=== PATIENT | female | born 1970 | race African-American/Black ===

== ENCOUNTER → 2016-11-05 | Outpatient (CLI) | payer OTHER ==
[2016-11-05 16:57] LABS: ABSOLUTE EOSINOPHILS # (AUTO) 0.1 10^3/uL (0.0-0.6); ABSOLUTE LYMPHOCYTES (AUTO) 2.8 10^3/uL (0.5-4.7); ABSOLUTE MONOCYTES (AUTO) 0.6 10^3/uL (0.1-1.4); BASOPHILS % (AUTO) 0.6 % (0-2); EOSINOPHILS % (AUTO) 0.8 % (0-6); HEMATOCRIT 45.6 % (36.0-47.0); HEMOGLOBIN 15.1 g/dL (12.0-15.5); HGB HCT DIFFERENCE -0.3; LYMPHOCYTES % (AUTO) 37.3 % (13-45); MEAN CORPUSCULAR HEMOGLOBIN 28.1 pg (27.0-33.4); MEAN CORPUSCULAR VOLUME 85 fl (80-97); MONOCYTES % (AUTO) 7.5 % (3-13); RED BLOOD COUNT 5.36 10^6/uL (3.72-5.28); RED CELL DISTRIBUTION WIDTH 14.1 % (11.5-14.0); SEGMENTED NEUTROPHILS % (AUTO) 53.8 % (42-78); WHITE BLOOD COUNT 7.4 10^3/uL (4.0-10.5)
[2016-11-05 17:22] LABS: ALANINE AMINOTRANSFERASE 32 U/L (9-52); ALBUMIN 4.9 g/dL (3.5-5.0); ALKALINE PHOSPHATASE 110 U/L (38-126); ANION GAP 19 (5-19); ASPARTATE AMINO TRANSFERASE 22 U/L (14-36); BILIRUBIN,DIRECT 0.4 mg/dL (0.0-0.4); BILIRUBIN,TOTAL 0.8 mg/dL (0.2-1.3); BLOOD UREA NITROGEN 18 mg/dL (7-20); CARBON DIOXIDE 21 mmol/L (22-30); CHLORIDE 99 mmol/L (98-107); CREATININE RESULT 0.99 mg/dL (0.52-1.25); GLUCOSE 95 mg/dL (75-110); POTASSIUM 3.5 mmol/L (3.6-5.0)
== END ==
LOC: CCC 15:27
DX: I10 Essential (primary) hypertension (principal); F41.9 Anxiety disorder, unspecified
CPT/HCPCS: 36415; 80053; 83036; 84436; 85025

== ENCOUNTER 2016-11-06 07:47 | Emergency (ER) | payer SELFPAY ==
--- NOTE | 2016-11-06 09:52 | ER Document Report ---
ED Medical Screen (RME) - General Chief Complaint: Anxiety Stated Complaint: ANXIETY Time Seen by Provider: 11/06/16 09:28 TRAVEL OUTSIDE OF THE U.[place] IN LAST 30 DAYS: No - HPI Notes: 11/06/16 09:51 Patient recently started on amlodipine hydrochlorothiazide and Prozac states having palpitations and worsening of her anxiety. - Related Data Allergies/Adverse Reactions: No Known Allergies Allergy (Verified 11/06/16 07:57) Past Medical History - Social History Chew tobacco use (# tins/day): No Frequency of alcohol use: None Drug Abuse: None - Past Medical History Cardiac Medical History: Reports: Hx Hypertension Renal/ Medical History: Denies: Hx Peritoneal Dialysis Psychiatric Medical History: Reports: Hx Depression - & anxiety Surgical Hx: Negative - Immunizations Hx Diphtheria, Pertussis, Tetanus Vaccination: Yes Review of Systems - Review of Systems Constitutional: Other - Patient is anxiety Physical Exam - Vital signs Vitals: Temp Pulse Resp BP Pulse Ox 98.2 F 115 H 16 135/93 H 99 11/06/16 07:57 11/06/16 07:57 11/06/16 07:57 11/06/16 07:57 11/06/16 07:57 - Cardiovascular Rhythm: Regular Heart sounds: Normal auscultation Course - Vital Signs Vital signs: Temp Pulse Resp BP Pulse Ox 98.2 F 115 H 16 135/93 H 99 11/06/16 07:57 11/06/16 07:57 11/06/16 07:57 11/06/16 07:57 11/06/16 07:57 Doctor's Discharge - Discharge Instructions: Anxiety ([facility])
[2016-11-06 10:23] LABS: ABSOLUTE BASOPHILS # (AUTO) 0.1 10^3/uL (0.0-0.2); ABSOLUTE EOSINOPHILS # (AUTO) 0.1 10^3/uL (0.0-0.6); ABSOLUTE LYMPHOCYTES (AUTO) 1.8 10^3/uL (0.5-4.7); ABSOLUTE MONOCYTES (AUTO) 0.6 10^3/uL (0.1-1.4); ABSOLUTE NEUT (AUTO) 4.5 10^3/uL (1.7-8.2); HEMATOCRIT 45.8 % (36.0-47.0); HEMOGLOBIN 14.9 g/dL (12.0-15.5); HGB HCT DIFFERENCE -1.1; LYMPHOCYTES % (AUTO) 25.7 % (13-45); MEAN CORPUSCULAR HEMOGLOBIN 27.9 pg (27.0-33.4); MEAN CORPUSCULAR HGB CONC 32.6 g/dL (32.0-36.0); MEAN CORPUSCULAR VOLUME 86 fl (80-97); MONOCYTES % (AUTO) 8.1 % (3-13); RED BLOOD COUNT 5.34 10^6/uL (3.72-5.28); RED CELL DISTRIBUTION WIDTH 14.3 % (11.5-14.0); SEGMENTED NEUTROPHILS % (AUTO) 64.2 % (42-78)
[2016-11-06 10:42] LABS: ALANINE AMINOTRANSFERASE 30 U/L (9-52); ALBUMIN 4.7 g/dL (3.5-5.0); ALKALINE PHOSPHATASE 111 U/L (38-126); ANION GAP 15 (5-19); ASPARTATE AMINO TRANSFERASE 23 U/L (14-36); BILIRUBIN,DIRECT 0.4 mg/dL (0.0-0.4); BLOOD UREA NITROGEN 15 mg/dL (7-20); CALCIUM 10.2 mg/dL (8.4-10.2); CARBON DIOXIDE 25 mmol/L (22-30); CHLORIDE 97 mmol/L (98-107); CREATINE KINASE 179 U/L (30-135); CREATININE RESULT 0.77 mg/dL (0.52-1.25); GLUCOSE 110 mg/dL (75-110); POTASSIUM 3.3 mmol/L (3.6-5.0); SODIUM 137.3 mmol/L (137-145)
[2016-11-06] MEDS ORDERED: POTASSIUM CHLORIDE 10 MEQ TABLET.SA PO ONE (10:45)
[2016-11-06 10:51] LABS: URINE BARBITURATES SCREEN NEGATIVE; URINE METHADONE SCREEN NEGATIVE; URINE OPIATES LOW NEGATIVE; URINE PHENCYCLIDINE SCREEN NEGATIVE
--- NOTE | 2016-11-06 10:51 | ER Document Report ---
ED General - General Chief Complaint: Anxiety Stated Complaint: ANXIETY Time Seen by Provider: 11/06/16 09:28 Mode of Arrival: Ambulatory Information source: Patient, Parent TRAVEL OUTSIDE OF THE [place] IN LAST 30 DAYS: No - HPI Onset: Other - 2 DAYS Onset/Duration: Sudden, Intermittent Quality of pain: No pain Associated symptoms: Other - PALPITATIONS, ANXIETY Exacerbated by: Denies Relieved by: Denies Similar symptoms previously: No Recently seen / treated by doctor: Yes - 3 d AGO, BEGUN ON 3 NEW MEDS - Related Data Allergies/Adverse Reactions: No Known Allergies Allergy (Verified 11/06/16 07:57) Past Medical History - General Information source: Patient - Social History Smoking Status: Former Smoker Cigarette use (# per day): No Chew tobacco use (# tins/day): No Frequency of alcohol use: None Drug Abuse: None Lives with: Parents Family History: None Patient has suicidal ideation: No Patient has homicidal ideation: No - Past Medical History Cardiac Medical History: Reports: Hx Hypertension Pulmonary Medical History: Reports: None EENT Medical History: Reports: None Neurological Medical History: Reports: None Endocrine Medical History: Reports: None Renal/ Medical History: Reports: None. Denies: Hx Peritoneal Dialysis Malignancy Medical History: Reports: None GI Medical History: Reports: None Musculoskeltal Medical History: Reports None Psychiatric Medical History: Reports: Hx Depression - & anxiety Surgical Hx: Negative - Immunizations Hx Diphtheria, Pertussis, Tetanus Vaccination: Yes Review of Systems - Review of Systems Constitutional: No symptoms reported EENT: No symptoms reported Cardiovascular: See HPI Respiratory: No symptoms reported Gastrointestinal: No symptoms reported Genitourinary: No symptoms reported Musculoskeletal: No symptoms reported Skin: No symptoms reported Neurological/Psychological: No symptoms reported Physical Exam - Vital signs Vitals: Temp Pulse Resp BP Pulse Ox 98.2 F 115 H 16 135/93 H 99 11/06/16 07:57 11/06/16 07:57 11/06/16 07:57 11/06/16 07:57 11/06/16 07:57 Interpretation: Hypertensive, Tachycardic - General General appearance: Appears well, Alert In distress: None - HEENT Head: Normocephalic Eyes: Normal Conjunctiva: Normal Ears: Normal Nasal: Normal Mouth/Lips: Normal Mucous membranes: Normal Neck: Normal - Respiratory Respiratory status: No respiratory distress Breath sounds: Normal - Cardiovascular Rhythm: Regular, Tachycardia Heart sounds: Normal auscultation Murmur: No - Abdominal Inspection: Normal - Back Back: Normal - Extremities General upper extremity: Normal inspection General lower extremity: Normal inspection. No: Edema - Neurological Neuro grossly intact: Yes Cognition: Normal Orientation: AAOx4 - Psychological Associated symptoms: Normal affect, Normal mood - Skin Skin Temperature: Warm Skin Moisture: Dry Skin Color: Normal Skin Turgor: Elastic Course - Vital Signs Vital signs: Temp Pulse Resp BP Pulse Ox 98.2 F 115 H 16 135/93 H 99 11/06/16 07:57 11/06/16 07:57 11/06/16 07:57 11/06/16 07:57 11/06/16 07:57 - Laboratory Result Diagrams: 11/06/16 10:00 11/06/16 10:00 Laboratory results interpreted by me: 11/06/16 11/06/16 10:00 10:00 RBC 5.34 H RDW 14.3 H Potassium 3.3 L Chloride 97 L Creatine Kinase 179 H Total Protein 9.0 H - EKG Interpretation by Me EKG shows normal: Sinus rhythm, [place], Intervals, QRS Complexes. abnormal: ST-T Waves - FLAT & INVERTED T WAVES, WIDESPREAD Rate: Tachycardia P Waves: LAE Discharge - Discharge Clinical Impression: Palpitations, Hypokalemia Depression Qualifiers: Depression Type: unspecified Qualified Code(s): F32.9 - Major depressive disorder, single episode, unspecified Condition: Stable Instructions: Anxiety ([facility]), Palpitations (Irregular or Rapid Heartrate) ([facility]) , Hypokalemia ([facility]) Additional Instructions: STOP TAKING YOUR AMLODIPINE AND PAROXETINE FOR NOW. CONTINUE TAKING HCTZ (HYDROCHLOROTHIAZIDE). TAKE POTASSIUM TABLETS PRESCRIBED FOR THE NEXT 7 DAYS. FOLLOW UP WITH YOUR PRIMARY CARE PROVIDER TUESDAY OR TUESDAY FOR BLOOD PRESSURE AND POTASSIUM RE-CHECK. RETURN TO E.R. IF PROBLEMS. Prescriptions: Potassium Chloride 10 meq PO BID #14 tablet.er Referrals: [facility] [Primary Care Provider] - Follow up as needed
[2016-11-06 11:06] LABS: CREATINE KINASE MB 0.57 ng/mL (<4.55); TROPONIN I < 0.012 ng/mL
[2016-11-06 11:25] LABS: THYROID STIMULATING HORMONE 1.77 uIU/mL (0.47-4.68)
[2016-11-06 12:23] VITALS: BP 114/71
--- NOTE | 2016-11-06 17:39 | EKG REPORT ---
SEVERITY:- ABNORMAL ECG - SINUS TACHYCARDIA PROBABLE LEFT ATRIAL ABNORMALITY ABNORMAL T, CONSIDER ISCHEMIA, DIFFUSE LEADS : Confirmed by: Megan Gallo 06-Nov-2016 17:38:49
== END 2016-11-06 12:20 | disposition home or self-care (01) ==
LOC: ER 07:47
DX: F32.9 Major depressive disorder, single episode, unspecified (principal); E87.6 Hypokalemia; R00.2 Palpitations; F41.9 Anxiety disorder, unspecified; Z87.891 Personal history of nicotine dependence
CPT/HCPCS: 36415; 80053; 80307; 82550; 82553; 84439; 84443; 84484; 85025; 93005; 93010; 99285

== ENCOUNTER → 2016-11-19 | Outpatient (CLI) | payer OTHER ==
--- NOTE | 2016-11-19 12:58 | WOMENS IMAGING REPORT ---
EXAM DESCRIPTION: BILAT SCREENING MAMMO W/CAD COMPLETED DATE/TIME: 11/19/2016 12:44 pm REASON FOR STUDY: Z12.31, ROUTINE SCREENING MAMMO Z12.31 ENCNTR SCREEN MAMMOGRAM FOR MALIGNANT NEOP LASM OF RENATO COMPARISON: None available TECHNIQUE: Standard craniocaudal and mediolateral oblique views of each breast recorded using digita l acquisition. LIMITATIONS: None. FINDINGS: No masses, calcifications or architectural distortion. No areas of suspicion. Read with the assistance of CAD. .[facility] - R2 Cenova Version 1.3 .[facility] Imaging - R2 Cenova Version 1.3 .[facility] - R2 Cenova Version 2.4 .[facility] - R2 Cenova Version 2.4 .[facility] - R2 Sternman Version 9.2 IMPRESSION: NORMAL MAMMOGRAM. BIRADS 1. BREAST DENSITY: c. The breasts are heterogeneously dense, which may obscure small masses. BIRAD: 1 NEGATIVE RECOMMENDATION: ROUTINE SCREENING Please consider bilateral screening tomosynthesis in November 2017 given heterogeneously dense tissue COMMENT: The patient has been notified of the results by letter per SA requirements. Additional no tification policies are in place for contacting patient with suspicious or incomplete findings. Quality ID #[id number]: The [employer] recommends an annual screening mammogram for women aged 40 years or over. This facility utilizes a reminder system to ensure that all patients receive reminder letters, and/or direct phone calls for appointments. This includes reminders for routine scr eening mammograms, diagnostic mammograms, or other Breast Imaging Interventions when appropriate. Th is patient will be placed in the appropriate reminder system. The [employer] [employer] (ACR) has developed recommendations for screening MRI of the breast s in certain patient populations, to be used in conjunction with mammography. Breast MRI surveillanc e may be appropriate for women with more than 20% lifetime risk of developing breast cancer as deter mined by genetic testing, significant family history of the disease, or history of mantle radiation f or Hodgkins Disease. ACR Practice Guidelines 2008. TECHNICAL DOCUMENTATION: FINDING NUMBER: (1) ASSESSMENT: (1) JOB ID: [id number] [employer]- All Rights Reserved
== END ==
LOC: WI 12:27
DX: Z12.31 Encounter for screening mammogram for malignant neoplasm of breast (principal)
CPT/HCPCS: 77067; G0202

== ENCOUNTER → 2016-11-19 | Outpatient (CLI) | payer OTHER ==
[2016-11-19 13:08] LABS: CHOLESTEROL 172.34 mg/dL (0-200); Direct HDL 60 mg/dL (>40); TRIGLYCERIDES 101 mg/dL (<150)
[2016-11-19 13:20] LABS: DIRECT LDL 99 mg/dL (<100)
== END ==
LOC: CCC 11:52
DX: I10 Essential (primary) hypertension (principal); F41.9 Anxiety disorder, unspecified
CPT/HCPCS: 36415; 80061

== ENCOUNTER 2018-08-03 10:33 | Emergency (ER) | payer SELFPAY ==
--- NOTE | 2018-08-03 11:57 | ER Document Report ---
ED Medical Screen (RME) - General Chief Complaint: Numbness Stated Complaint: FOOT NUMBNESS Time Seen by Provider: 08/03/18 11:21 Primary [facility] Provider: [facility] [Primary Care Provider] - Follow up as needed Mode of Arrival: Ambulatory Information source: Patient TRAVEL OUTSIDE OF THE U.S. IN LAST 30 DAYS: No - HPI Notes: 08/03/18 11:53 Patient is a 48-year-old female history of hypertension and gestational diabetes and anxiety presents to the emergency department with report of a 2-day history of numbness in the left foot that she is noticed. She states she has some new diabetic socks that may have felt somewhat tight around her foot and ankle which may have accounted for this. She questions if she can massage the area and it might feel better. She denies any weakness, headache, chest pain, difficulty breathing. She reports that the numbness has been fairly consistent for the past 2 days. Family history diabetes, coronary artery disease in the age 60-70 range. Strokes in the age 80 range. Medications hydroxyzine and a blood pressure/fluid pill. Physical exam HEENT atraumatic normocephalic conjunctiva clear Neck supple nontender no carotid bruits. Cardiovascular regular rate and rhythm without appreciable murmur gallop or rubs. Rate was 98, although her triage pulse rate was 127 Lungs clear to auscultation Abdomen nontender Extremities good distal pulses and capillary refill all 4 extremities. No cyanosis, clubbing or edema. Skin no breakdown or other abnormality. Neuro exam normal except for subjective numbness left foot. No motor deficits or other abnormality appreciated. No cerebellar ataxia. Cranial nerves II through XII intact. Blood pressure somewhat elevated in triage pulse rate was 127, although that has normalized. Most likely related to the tight socks and increased time on the patient's feet, but must also rule out and evaluate for electrolyte imbalance and CVA and cardiac arrhythmia given the tachycardia noted. CT scan EKG and lab studies ordered on the patient. Please see partner's note for further evaluation and care. - Related Data Allergies/Adverse Reactions: No Known Allergies Allergy (Verified 11/06/16 07:57) Past Medical History - Social History Chew tobacco use (# tins/day): No Frequency of alcohol use: None Drug Abuse: None - Past Medical History Cardiac Medical History: Reports: Hx Hypertension Renal/ Medical History: Denies: Hx Peritoneal Dialysis Psychiatric Medical History: Reports: Hx Depression - & anxiety - Immunizations Hx Diphtheria, Pertussis, Tetanus Vaccination: Yes Physical Exam - Vital signs Vitals: Temp Pulse Resp BP Pulse Ox 98.4 F 127 H 20 156/103 H 99 08/03/18 10:43 08/03/18 10:43 08/03/18 10:43 08/03/18 10:43 08/03/18 10:43 Course - Vital Signs Vital signs: Temp Pulse Resp BP Pulse Ox 98.4 F 127 H 20 156/103 H 99 08/03/18 10:43 08/03/18 10:43 08/03/18 10:43 08/03/18 10:43 08/03/18 10:43 Doctor's Discharge - Discharge Referrals: [facility] [Primary Care Provider] - Follow up as needed
--- NOTE | 2018-08-03 12:35 | RADIOLOGY REPORT (SQ) ---
EXAM DESCRIPTION: CT HEAD WITHOUT COMPLETED DATE/TIME: 08/03/2018 12:29 pm REASON FOR STUDY: L foot numbness COMPARISON: None. TECHNIQUE: Axial images acquired through the brain without intravenous contrast. Images reviewed wi th bone, brain and subdural windows. Additional sagittal and coronal reconstructions were generated. Images stored on PACS. All CT scanners at this facility use dose modulation, iterative reconstruction, and/or weight based d osing when appropriate to reduce radiation dose to as low as reasonably achievable (ALARA). [facility]: Dose Right [facility]: CareDose [facility]: Dose Right [facility]: Teradose 4D [facility]: Smart Technologies RADIATION DOSE: CT Rad equipment meets quality standard of care and radiation dose reduction techniq ues were employed. CTDIvol: 53.2 mGy. DLP: 1097 mGy-cm. mGy. LIMITATIONS: None. FINDINGS: VENTRICLES: Normal size and contour. CEREBRUM: No masses. No hemorrhage. No midline shift. No evidence for acute infarction. Normal gra y/white matter differentiation. No areas of low density in the white matter. CEREBELLUM: No masses. No hemorrhage. No alteration of density. No evidence for acute infarction. EXTRAAXIAL SPACES: No fluid collections. No masses. ORBITS AND GLOBE: No intra- or extraconal masses. Normal contour of globe without masses. CALVARIUM: No fracture. PARANASAL SINUSES: No fluid or mucosal thickening. SOFT TISSUES: No mass or hematoma. OTHER: No other significant finding. IMPRESSION: NORMAL BRAIN CT WITHOUT CONTRAST. EVIDENCE OF ACUTE STROKE: NO. COMMENT: Quality ID # [id number]: Final reports with documentation of one or more dose reduction techniques (e.g., Automated exposure control, adjustment of the mA and/or kV according to patient size, use of iterative reconstruction technique) TECHNICAL DOCUMENTATION: JOB ID: [id number] [employer]- All Rights Reserved Reading location - IP/workstation name: [email or web address]
[2018-08-03 12:46] LABS: ABSOLUTE BASOPHILS # (AUTO) 0.1 10^3/uL (0.0-0.2); ABSOLUTE EOSINOPHILS # (AUTO) 0.2 10^3/uL (0.0-0.6); ABSOLUTE LYMPHOCYTES (AUTO) 1.6 10^3/uL (0.5-4.7); ABSOLUTE MONOCYTES (AUTO) 0.3 10^3/uL (0.1-1.4); ABSOLUTE NEUT (AUTO) 3.2 10^3/uL (1.7-8.2); EOSINOPHILS % (AUTO) 3.7 % (0-6); HEMATOCRIT 38.5 % (36.0-47.0); HEMOGLOBIN 13.1 g/dL (12.0-15.5); LYMPHOCYTES % (AUTO) 29.7 % (13-45); MEAN CORPUSCULAR HEMOGLOBIN 28.9 pg (27.0-33.4); MEAN CORPUSCULAR VOLUME 85 fl (80-97); MONOCYTES % (AUTO) 6.4 % (3-13); PLATELET COUNT 324 10^3/uL (150-450); RED BLOOD COUNT 4.53 10^6/uL (3.72-5.28); RED CELL DISTRIBUTION WIDTH 14.9 % (11.5-14.0); SEGMENTED NEUTROPHILS % (AUTO) 59.2 % (42-78); TOTAL CELLS COUNTED % (AUTO) 100 %; WHITE BLOOD COUNT 5.4 10^3/uL (4.0-10.5)
--- NOTE | 2018-08-03 13:03 | ER Document Report ---
ED General - General Chief Complaint: Numbness Stated Complaint: FOOT NUMBNESS Time Seen by Provider: 08/03/18 11:21 Primary Care Provider: [facility] [Primary Care Provider] - Follow up as needed Mode of Arrival: Ambulatory TRAVEL OUTSIDE OF THE [place]. IN LAST 30 DAYS: No - HPI Notes: Patient presents emergency department for evaluation of numbness over the right foot, dorsal medial aspect. She states she noticed it when she woke. She s tates is been getting progressively improved. She denies any back pain. No bowel or bladder incontinence, no saddle anesthesia, no focal numbness or weakness. She states she is primarily concerned about the possibility of diabetes. There is a strong family history of this. She denies any pain at this time. She has been eating and drinking normally. She is traveled down from [place] to spend time with her mother, expects she will be here for the next several months. Patient brings of the fact that her blood pressure and heart rate are high. She states she does have history of anxiety as well as "white coat syndrome." She states that when she is in the doctor's office her blood pressure and heart rate are always high, this issue does not surprise her. We did discuss the sequelae of long-term elevated heart rate and blood pressure. I strongly encouraged her to continue to follow this and pursue treatment as necessary. - Related Data Allergies/Adverse Reactions: No Known Allergies Allergy (Verified 11/06/16 07:57) Past Medical History - General Information source: Patient - Social History Smoking Status: Never Smoker Chew tobacco use (# tins/day): No Frequency of alcohol use: None Drug Abuse: None Family History: CAD, DM Patient has suicidal ideation: No Patient has homicidal ideation: No - Past Medical History Cardiac Medical History: Reports: Hx Hypertension Renal/ Medical History: Denies: Hx Peritoneal Dialysis Psychiatric Medical History: Reports: Hx Depression - & anxiety - Immunizations Hx Diphtheria, Pertussis, Tetanus Vaccination: Yes Review of Systems - Review of Systems Constitutional: No symptoms reported EENT: No symptoms reported Cardiovascular: No symptoms reported Respiratory: No symptoms reported Gastrointestinal: No symptoms reported Genitourinary: No symptoms reported Musculoskeletal: No symptoms reported Skin: No symptoms reported Neurological/Psychological: See HPI Physical Exam - Vital signs Vitals: Temp Pulse Resp BP Pulse Ox 98.4 F 127 H 20 156/103 H 99 08/03/18 10:43 08/03/18 10:43 08/03/18 10:43 08/03/18 10:43 08/03/18 10:43 - Notes Notes: Vital signs reviewed, please refer to chart. Patient is normocephalic, atraumatic. Pupils equal round, reactive to light. Neck is supple without meningismus. Heart is regular rate and rhythm. Lungs are clear to auscultation bilaterally. Abdomen is soft, nontender, normoactive bowel sounds throughout. Extremities without cyanosis, clubbing, edema. Peripheral pulses are equal. Skin is warm and dry. Patient is awake, alert, oriented x3. Cranial nerves II through XII are grossly intact without focal neurological deficits. Strength is plus 5 out of 5 bilateral upper and lower extremities. Patient has paresthesias and diminished sensation to light touch over the dorsum of the right foot. The remainder of the sensation to the lower extremities and bilateral upper extremities is intact. Patellar and Achilles reflexes are 2+ and symmetrical, gait within normal limits. Course - Re-evaluation Re-evalutation: 08/03/18 13:00 Patient presents to the emergency department for evaluation. Her heart rate was elevated upon arrival. She did have EKG performed which showed a mild sinus tachycardia of 102 bpm but no significant abnormalities. Laboratory investigations were ordered by the provider in triage. Patient assures me that her symptoms have been getting slowly improved. I do suspect a mild neurapraxia/peripheral etiology for this patient's paresthesias. Her CMP was hemolyzed so decision was made to convert this to a point of care Accu-Chek. Her glucose on that was 80. At this point her symptoms are improving without any sort of intervention. She is told she needs to follow-up with regards to her blood pressure and she voiced understanding to this. She is to return to the emergency department with worsening or new concerning symptoms. - Vital Signs Vital signs: Temp Pulse Resp BP Pulse Ox 98.4 F 127 H 20 156/103 H 99 08/03/18 10:43 08/03/18 10:43 08/03/18 10:43 08/03/18 10:43 08/03/18 10:43 - Laboratory Result Diagrams: 08/03/18 12:14 08/03/18 12:14 Laboratory results interpreted by me: 03/21/19 12:14 RDW 14.9 H - EKG Interpretation by Me Additional EKG results interpreted by me: 08/03/18 13:03 Sinus tachycardia with a rate of 102 bpm. Normal axis and intervals, no acute ST changes concerning for ischemia or infarction. Discharge - Discharge Clinical Impression: Paresthesia of right foot Condition: Stable Disposition: HOME, SELF-CARE Instructions: Numbness or Paresthesia ([facility]) Additional Instructions: Follow-up with your primary care physician regarding your blood pressure and heart rate being elevated. Blood glucose was 80 today here. I do not suspect it as a cause for your numbness and tingling. If you develop increased numbness, weakness, pain, or any other new or concerning symptoms, return immediately to the emergency department for evaluation. Forms: Elevated Blood Pressure Referrals: [facility] [Primary Care Provider] - Follow up as needed
[2018-08-03 13:37] VITALS: BP 154/106
--- NOTE | 2018-08-03 22:59 | EKG REPORT ---
SEVERITY:- OTHERWISE NORMAL ECG - SINUS TACHYCARDIA : Confirmed by: Megan Gallo 03-Aug-2018 22:59:07
== END 2018-08-03 13:37 | disposition home or self-care (01) ==
LOC: ER 10:33
DX: R20.0 Anesthesia of skin (principal); I10 Essential (primary) hypertension
CPT/HCPCS: 36415; 70450; 82962; 85025; 93005; 93010; 99284

== ENCOUNTER 2018-08-19 20:34 | Emergency (ER) | payer SELFPAY ==
--- NOTE | 2018-08-19 22:22 | ER Document Report ---
ED General - General Chief Complaint: Rash Stated Complaint: LEFT LEG PAIN Time Seen by Provider: 08/19/18 22:01 Primary Care Provider: [facility] [NO LOCAL MD] - Follow up as needed Mode of Arrival: Ambulatory Information source: Patient TRAVEL OUTSIDE OF THE [place]. IN LAST 30 DAYS: No - HPI Patient complains to provider of: Left calf rash Onset: Other - Past few days Onset/Duration: Gradual Severity: Mild Associated symptoms: denies: Chills, Diarrhea, Fever, Nausea, Vomiting Exacerbated by: Denies Relieved by: Denies Similar symptoms previously: No Recently seen / treated by doctor: No Notes: 48-year-old -[place] female coming in today with a rash on her left calf. Patient notes some time ago that she had what she describes as the "flesh eating bacteria" on her left forearm. She states that they were able to treat it with antibiotics and no surgical intervention. Over the past couple days she has had a warm feeling in her left calf which has a similar feeling to how her forearm felt before she got infected. She does not complain of fevers or chills or malaise or flulike illness. Does not complain of any calf tenderness. Does not complain of any swelling in the left calf - Related Data Allergies/Adverse Reactions: No Known Allergies Allergy (Verified 08/19/18 20:39) Past Medical History - General Information source: Patient - Social History Smoking Status: Current Every Day Smoker Chew tobacco use (# tins/day): No Drug Abuse: None Family History: Reviewed & Not Pertinent, CAD, DM Patient has suicidal ideation: No Patient has homicidal ideation: No - Past Medical History Cardiac Medical History: Reports: Hx Hypertension Renal/ Medical History: Denies: Hx Peritoneal Dialysis Psychiatric Medical History: Reports: Hx Depression - & anxiety - Immunizations Hx Diphtheria, Pertussis, Tetanus Vaccination: Yes Review of Systems - Review of Systems Notes: Constitutional: No fevers. No chills. EENT: No eye redness. No eye pain. No ear pain. No sore throat. Cardiovascular: No chest pain. No palpitations. Respiratory: No cough. No shortness of breath. No respiratory distress. Gastrointestinal: No abdominal pain. No nausea, vomiting, or diarrhea. Genitourinary: Atraumatic. No lesions. No pain. No discharge. Musculoskeletal: Atraumatic. No swelling. No deformities. Skin: Skin of left calf feels warm Lymphatic: No swollen lymph nodes. Neurologic: No headache. No syncope. Psychiatric: No suicidal or homicidal ideation. Physical Exam - Notes Notes: General: Well-developed, well-nourished. In no acute distress. Non-toxic appearing. Cardiac: Well-perfused. Regular rate and rhythm. No murmurs, rubs, or gallops. Pulmonary: No respiratory distress. No cyanosis. Bilateral lung fiels are clear to auscultation. Abdominal: Non-distended. Non-rigid. Bowels sounds are present in all four quadrants. No guarding or rebound. HEENT: Head is atraumatic. Conjunctivae not reddened. No tearing. PERRL. EOMI. Orbits atraumatic. No periorbital swelling or erythema. Oropharynx is without erythema, swelling, or exudates. Neck: Supple. No adenopathy. No meningismus. Dermatologic: Warm with good turgor. No rash. Atraumatic. Chest: Atraumatic. No chest wall tenderness to palpation. Musculoskeletal: Moves all extremities well. No range of motion deficits. no muscular or joint tenderness. No paraspinal muscle tenderness. no midline spinal tenderness or step-off. Left calf minimally erythematous to the mid calf. There is no tenderness to squeeze. There is no subcutaneous crepitus. There is no heat to the area. No open or draining lesions. Dorsalis pedis and posterior tibial pulses 2+ bilaterally. Genitourinary: Examination deferred Neurologic: No gross neurologic deficits. Psychiatric: Normal mood. Course - Re-evaluation Re-evalutation: 08/19/18 22:21 Patient may be developing an early cellulitis but definitely no vasquez features for necrotizing fasciitis. Will start on Keflex for cellulitis. She will return to the ED if anything starts to look worse Discharge - Discharge Clinical Impression: Cellulitis Qualifiers: Site of cellulitis: extremity Site of cellulitis of extremity: lower extremity Laterality: left Qualified Code(s): L03.116 - Cellulitis of left lower limb Condition: Good Disposition: HOME, SELF-CARE Instructions: Cellulitis ([facility]) Additional Instructions: Start the antibiotics as directed. Return to emergency room at any time if you start to notice any worsening of your symptoms. Prescriptions: Cephalexin Monohydrate [Keflex 500 mg Capsule] 500 mg PO Q6H 10 Days #40 capsule [facility]errals: [facility] [NO LOCAL MD] - Follow up as needed Print Language: Macedonian
[2018-08-19 22:29] VITALS: BP 166/87
== END 2018-08-19 22:33 | disposition home or self-care (01) ==
LOC: ER 20:34
DX: L03.116 Cellulitis of left lower limb (principal); R21 Rash and other nonspecific skin eruption; F17.200 Nicotine dependence, unspecified, uncomplicated; I10 Essential (primary) hypertension
CPT/HCPCS: 99282